=== PATIENT | male | born 1950 | race Caucasian/White ===

== ENCOUNTER 2018-09-17 15:57 | Emergency (ER) | payer MEDICARE, OTHER ==
[~2018-09-17] VITALS: Ht 180.3 cm; Wt 68.2 kg
[2018-09-17 16:54] LABS: BASO # 0.1 10^3/uL (0.0-0.2); BASO % 0.7 % (0.0-1.0); EOS # 0.1 10^3/uL (0.0-0.50); EOS % 0.6 % (0.0-3.0); HEMATOCRIT 43.7 % (42.0-52.0); LYMPH # 1.1 10^3/uL (1.5-4.5); LYMPH % 13.3 % (24.0-44.0); MEAN CORPUSCULAR HEMOGLOBIN 31.6 pg (27.0-33.0); MEAN CORPUSCULAR HGB CONC 34.3 g/dl (32.0-36.5); MONO % 11.9 % (0.0-5.0); NEUTROPHILS # 6.3 10^3/uL (1.8-7.7); PLATELET COUNT, AUTOMATED 298 10^3/uL (150-450); RED BLOOD COUNT 4.75 10^6/uL (4.30-6.10); WHITE BLOOD COUNT 8.6 10^3/uL (4.0-10.0)
[2018-09-17 17:25] LABS: ALBUMIN 3.8 GM/DL (3.2-5.2); ALT/SGPT 24 U/L (12-78); BILIRUBIN,DIRECT 0.2 MG/DL (0.0-0.2); BILIRUBIN,TOTAL 0.4 MG/DL (0.2-1.0); BLOOD UREA NITROGEN 16 MG/DL (7-18); CARBON DIOXIDE LEVEL 30 MEQ/L (21-32); CHLORIDE LEVEL 99 MEQ/L (98-107); CREATININE FOR GFR 0.94 MG/DL (0.70-1.30); GLOMERULAR FILTRATION RATE > 60.0 (>49); GLUCOSE, FASTING 103 MG/DL (70-100); LIPASE 102 U/L (73-393); POTASSIUM SERUM 4.5 MEQ/L (3.5-5.1); SODIUM LEVEL 137 MEQ/L (136-145)
[2018-09-17 17:30] LABS: INR 1.04; PROTHROMBIN TIME 13.3 SECONDS (11.8-14.0)
--- NOTE | 2018-09-17 19:11 | REPVR ---
EXAM: CT Abdomen and Pelvis Without Contrast EXAM DATE/TIME: 09/17/2018 5:10 PM CLINICAL HISTORY: 68 years old, male; Other: Hematuria, no pain; Additional info: Hematuria, no pain, ? baldder CA TECHNIQUE: Imaging protocol: Axial computed tomography images of the abdomen and pelvis without contrast. Coronal and sagittal reformatted images were created and reviewed. Radiation optimization: All CT scans at this facility use at least one of these dose optimization techniques: automated exposure control; mA and/or kV adjustment per patient size (includes targeted exams where dose is matched to clinical indication); or iterative reconstruction. COMPARISON: No relevant prior studies available. FINDINGS: Lungs: Clear lung bases. Liver: Normal-appearing liver. Gallbladder and bile ducts: The gallbladder is fluid-filled. Normal common bile duct. Pancreas: Normal pancreas. Spleen: Normal spleen. Adrenals: Normal adrenal glands. Kidneys and ureters: There is no evidence of calcified stone right kidney. There is no evidence of obstruction of the right or left ureter. Stomach and bowel: There is marked thickening of the bowel wall of the mid and distal sigmoid colon with numerous diverticula. The cecum is in the right pelvis and the appendix appears within the range of normal. Intraperitoneal space: Normal. No free air. No significant fluid collection. Vasculature: There is calcification of the aorta consistent with atherosclerotic change. Bladder: There is a large mass in the anterior right side of the urinary bladder measuring 5.2 CM by 4.1 CM. There is a hazy appearance of the margin of the urinary bladder and pelvic fat which may be lymphangitic infiltration of neoplasm. There is a 8mm lymph node anterior to the urinary bladder in the peripelvic fat. Reproductive: There is moderate enlargement of the prostate. Bones/joints: There is severe narrowing of the L1-L2, L4-L5 and L5-S1 disc space with sclerosis and osteophyte formation. Other findings: There is moderate rotoscoliosis. IMPRESSION: 1. 5.2 CM by 4.1 C. solid lobulated mass anterior right side of the urinary bladder. Hazy margins could be lymphangitic invasion. 8mm lymph node identified near the urinary bladder mass. There is lobulation along the base of the urinary bladder as well which could be additional neoplasm. 2. Moderate enlargement of the prostate. 3. There is prominent thickening of the bowel wall of the sigmoid colon with numerous diverticula. With this type of thickening underlying infiltrative process such as neoplasm should be excluded. Colonoscopy should be considered. Electronically signed by: Jadiel Jones On 09/17/2018 19:11:16 PM
[2018-09-17 19:33] VITALS: BP 190/102
[2018-09-17] MEDS ORDERED: MACR100C43 PO (19:36)
[2018-09-17] MEDS ORDERED: NITROFURANTOIN (MACROBID) 100 MG CAP PO ONE (19:45)
--- NOTE | 2018-09-20 21:30 | ED PDOC ---
Post-Departure Follow-Up cheyenne carrera and naina faxed formal report of ct abd/p for fu Kathryn Kilpatrick MD Sep 20, 2018 21:30
[2018-11-17] MEDS ORDERED: BACT400T PO (13:09)
[2018-11-17] MEDS ORDERED: BIOCTAB PO (13:09)
[2018-12-14] MEDS ORDERED: OLAN10TA2 PO (16:01)
[2018-12-14] MEDS ORDERED: PROC10TA4 PO (16:01)
[2018-12-14] MEDS ORDERED: ONDA8TAB10 PO (16:01)
[2019-01-11] MEDS ORDERED: LAXA15TA PO (13:48)
[2019-01-12] MEDS ORDERED: DULC100C2 PO (10:17)
[2019-02-15] MEDS ORDERED: ELIQ5TAB PO (00:01)
== END 2018-09-17 19:46 | disposition home or self-care (01) ==
LOC: M ED 15:57
DX: N32.9 Bladder disorder, unspecified (principal); N39.0 Urinary tract infection, site not specified; R31.21 Asymptomatic microscopic hematuria; I10 Essential (primary) hypertension; N40.0 Benign prostatic hyperplasia without lower urinary tract symptoms; K63.89 Other specified diseases of intestine; F17.210 Nicotine dependence, cigarettes, uncomplicated

== ENCOUNTER → 2018-09-21 | Outpatient (CLI) | payer MEDICARE, OTHER ==
[~2018-09-21] MED LIST: MACR100C43 PO
== END ==
LOC: M SMT 09:02
PROVIDERS: ATTEND Nurse Practitioner Women's Health
DX: Z12.5 Encounter for screening for malignant neoplasm of prostate (principal)
CPT/HCPCS: 36415; 88108; G0103; G0463

== ENCOUNTER → 2018-10-22 | Outpatient (CLI) | payer MEDICARE, OTHER ==
--- NOTE | 2018-10-22 15:02 | REP ---
Clinical: Preoperative assessment. Bladder tumor. Technique: PA and lateral. Comparison: None. Findings: Chronic emphysematous changes are appreciated. No focal consolidation, effusion, or pneumothorax. Mediastinum and cardiac silhouette are normal. Airway is patent and midline. Skeletal structures are intact. Impression: Chronic emphysematous changes. No acute cardiopulmonary process. Electronically Signed by Gaurang Delgado MD 10/22/2018 02:54 P
[2018-10-22 15:58] LABS: BLOOD UREA NITROGEN 13 MG/DL (7-18); CARBON DIOXIDE LEVEL 32 MEQ/L (21-32); CHLORIDE LEVEL 98 MEQ/L (98-107); CREATININE FOR GFR 0.87 MG/DL (0.70-1.30); GLOMERULAR FILTRATION RATE > 60.0 (>49); GLUCOSE, FASTING 127 MG/DL (70-100); HEMATOCRIT 43.3 % (42.0-52.0); HEMOGLOBIN 14.8 g/dl (13.5-17.5); INR 0.96; MEAN CORPUSCULAR HEMOGLOBIN 31.8 pg (27.0-33.0); MEAN CORPUSCULAR HGB CONC 34.2 g/dl (32.0-36.5); MEAN CORPUSCULAR VOLUME 93.1 fl (80.0-96.0); PLATELET COUNT, AUTOMATED 319 10^3/uL (150-450); POTASSIUM SERUM 5.1 MEQ/L (3.5-5.1); PROTHROMBIN TIME 12.5 SECONDS (11.8-14.0); RED BLOOD COUNT 4.65 10^6/uL (4.30-6.10); SODIUM LEVEL 134 MEQ/L (136-145); WHITE BLOOD COUNT 8.2 10^3/uL (4.0-10.0)
[2018-10-22 15:59] LABS: PARTIAL THROMBOPLASTIN TIME 37.7 SECONDS (25.0-38.4)
== END ==
LOC: M LAB 14:16
PROVIDERS: ATTEND Internal Medicine Gastroenterology
DX: Z01.818 Encounter for other preprocedural examination (principal); D49.4 Neoplasm of unspecified behavior of bladder

== ENCOUNTER 2018-10-28 08:32 | Day surgery (SDC) | payer MEDICARE, OTHER ==
[~2018-10-28] VITALS: Ht 177.8 cm; Wt 61.5 kg
[~2018-10-28 08:32] MED LIST changes: +LR 1,000 ML IV ONE
[2018-10-28] MEDS ORDERED: PROPOFOL 200 MG/20 ML VIAL As Ordered ONE (10:21)
[2018-10-28] MEDS ORDERED: ONDANSETRON 4MG/2ML VIAL (J2405) As Ordered ONE (10:21)
[2018-10-28] MEDS ORDERED: MIDAZOLAM INJ 2 MG/2 ML VIAL (J2250) As Ordered ONE (10:21)
[2018-10-28] MEDS ORDERED: LIDOCAINE 2% INJ 100 MG/5 ML SDV (FOR ANES.) As Ordered ONE (10:21)
[2018-10-28] MEDS ORDERED: fentaNYL 100 MCG/2 ML INJECTION (J3010) As Ordered ONE ×2 (10:21→11:56)
[2018-10-28] MEDS ORDERED: dexameTHASONE 4 MG/ML 1ML VIAL (J1100) As Ordered ONE (10:21)
[2018-10-28] MEDS ORDERED: ROCURONIUM BROMIDE 50 MG/5 ML VIAL As Ordered ONE (10:21)
[2018-10-28] MEDS ORDERED: ALBUTEROL SULFATE 2.5 MG/0.5 ML INH NEB SOLN As Ordered ONE (10:27)
[2018-10-28] MEDS ORDERED: ALBUTEROL SULFATE 2.5 MG/0.5 ML INH NEB SOLN INH ONE (10:45)
[2018-10-28] MEDS ORDERED: METHYLENE BLUE 0.5% (5MG/ML) 10 ML AMP (PROVAYBLUE)(Q9968 PER 1MG) As Ordered ONE (11:18)
[2018-10-28] MEDS ORDERED: ACETAMINOPHEN 1000MG 100ML IV BTL (OFIRMEV) (J0131 PER 10MG) As Ordered ONE (12:00)
[2018-10-28] MEDS ORDERED: SUGAMMADEX SODIUM 500 MG/5 ML VIAL (BRIDION) As Ordered ONE (12:06)
[2018-10-28] MEDS ORDERED: KETOROLAC 60 MG/2 ML VIAL (J1885) As Ordered ONE (12:06)
[2018-10-28] MEDS ORDERED: fentaNYL 100 MCG/2 ML INJECTION (J3010) IV PRN (13:00)
[2018-10-28] MEDS ORDERED: PERCOCET 5MG/325MG TAB PO PRN (13:00)
[2018-10-28] MEDS ORDERED: ONDANSETRON 4MG/2ML VIAL (J2405) IV PRN (13:00)
[2018-10-28] MEDS ORDERED: LR 1,000 ML IV SCH (13:00)
[2018-10-28] MEDS ORDERED: ACETAMINOPHEN TAB 650MG DOSE (2X325MG) PO PRN (13:15)
[2018-10-28 14:22] VITALS: BP 176/82
--- NOTE | 2018-10-29 07:42 | RO ---
DATE OF PROCEDURE: 10/28/2018 PREPROCEDURE DIAGNOSIS: Bladder tumor. POSTPROCEDURE DIAGNOSIS: Bladder tumor, meatal stenosis. OPERATIVE PROCEDURE: Cystoscopy, transurethral resection of bladder tumor (greater than 5 cm), urethral meatal dilation, examination under anesthesia. SURGEON: Monster Duenas MD TACTICAL DEBRIEFER OFFICER: None. ANESTHESIA: General. OPERATIVE INDICATIONS: This is a 68-year-old male who was found to have a very large bladder tumor going up the anterior wall as well as several additional tumors scattered throughout his bladder. He was brought to the operating room today for the above listed procedure. DESCRIPTION OF PROCEDURE: The patient was brought to the operating room and general anesthesia was induced. Prophylactic antibiotics were infused. He was then placed in dorsal lithotomy position and a bimanual digital rectal examination under anesthesia was performed. It was negative for prostate nodules. I could not palpate any bladder masses through the rectum but when palpating in the suprapubic area, it felt as if a large mass could be palpated in his bladder. At this point, the patient was prepped and draped in the usual sterile fashion. I then tried to insert a resectoscope but it would not go as the meatus was too narrow. I therefore dilated his urethral meatus to 30 Latvian using curved metal sounds. I then inserted the resectoscope using the visual obturator and advanced it into the bladder. The bladder was thoroughly examined and of note, the patient had a large approximately 5-6 cm ball shaped mass growing off of the anterior wall. He also had several additional tumors growing throughout his bladder on the posterior wall as well as the bladder base. I could not visualize the ureteral orifices because of this. At this point, I began resecting the tumors,starting on the large one on the anterior wall. I completely resected that tumor. I also resected additional tumors in the bladder. It did not appear possible to completely resect all of his tumors. I therefore did not resect at the base of the bladder, not knowing where the ureteral orifices were. Once done resecting, all the specimen was removed using an Ellik evacuator. I then took two biopsies of the prostatic urethra as well. This was sent separate as biopsy of prostate urethra. Hemostasis was obtained using coagulation current and once satisfied with hemostasis, an 18-Latvian Cueto catheter was inserted into the bladder. The balloon was filled with 10 mL of sterile water and the catheter was connected to gravity drainage and this marked the conclusion of the procedure. The patient was taken out of dorsal lithotomy position, awakened from anesthesia and transported to the recovery room in stable condition. ESTIMATED BLOOD LOSS: 10 mL. COMPLICATIONS: None. SPECIMENS: Bladder tumors, biopsy of the prostatic urethra. PLAN: The patient will followup in the clinic in a week or so for catheter removal and to discuss pathology results. I suspect this patient does have muscle invasive bladder cancer and will likely ultimately need to have a cystectomy done with neoadjuvant chemotherapy. MTDD
== END 2018-10-28 14:37 | disposition home or self-care (01) ==
LOC: M SDC 08:32
PROVIDERS: ATTEND Urology
DX: C67.8 Malignant neoplasm of overlapping sites of bladder (principal); N35.911 Unspecified urethral stricture, male, meatal; F17.210 Nicotine dependence, cigarettes, uncomplicated
CPT/HCPCS: 52240; 88305; 88307; J0131; J0690; J1100; J1885; J2250; J2405; J3010; Q9968

== ENCOUNTER → 2018-11-10 | Outpatient (REF) | payer MEDICARE, OTHER ==
[~2018-11-10] MED LIST changes: -LR 1,000 ML IV ONE
[2018-11-10 19:26] LABS: APPEARANCE, URINE CLOUDY (CLEAR); BACTERIA, URINE AUTO NEGATIVE (NEGATIVE); BILIRUBIN, URINE AUTO NEGATIVE (NEGATIVE); BLOOD, URINE BLOOD 3+ (NEGATIVE); COLOR, URINE YELLOW (YELLOW); GLUCOSE, URINE (UA) AUTO NEGATIVE (NEGATIVE); KETONE, URINE AUTO NEGATIVE (NEGATIVE); LEUKOCYTE ESTERASE, URINE AUTO 3+ (NEGATIVE); MUCUS, URINE SMALL (NEGATIVE); NITRITE, URINE AUTO POSITIVE (NEGATIVE); PROTEIN, URINE AUTO 2+ mg/dL (NEGATIVE); RBC, URINE AUTO TNTC /HPF (0-3); SPECIFIC GRAVITY URINE AUTO 1.014 (1.002-1.035); SQUAMOUS EPITHELIAL CELL UR AU 0 /HPF (0-6); TRANSITIONAL EPITHELIAL AUTO 4 /HPF; UROBILINOGEN, URINE AUTO 0.2 mg/dL (0.0-2.0); WBC, URINE AUTO TNTC /HPF (0-3)
== END ==
LOC: M SMT 18:36
PROVIDERS: ATTEND Nurse Practitioner Women's Health
DX: N50.89 Other specified disorders of the male genital organs (principal)
CPT/HCPCS: 81001; 87088; 87186; G0463

== ENCOUNTER → 2018-11-18 | Outpatient (CLI) | payer MEDICARE, OTHER ==
[~2018-11-18] MED LIST changes: +BACT400T PO; +BIOCTAB PO
--- NOTE | 2018-11-19 07:43 | ECHO ---
TWO-DIMENSIONAL ECHOCARDIOGRAM REPORT DATE: 11/18/2018 REFERRING PHYSICIAN: Dr. Jo Ann Almanzar INDICATION: Chemotherapy. HEIGHT: 177 cm. WEIGHT: 62 kg. DIMENSIONS: IVS 1.0 LV 3.7 LVPW 1.1 LA 2.5 Aorta 3.1 IVC 1.1 Mitral E wave velocity 61 A-wave 60 FINDINGS: The study is of acceptable technical quality. The patient is in sinus rhythm with heart rate around 90 beats per minute. Left ventricle is normal size and systolic function, estimated left ventricular ejection fraction (LVEF) is around 65%. Calculated LVEF was 59% which seems to me unlikely this low. Right ventricle is normal size and systolic function. Both atria appear normal. Aortic mitral and tricuspid valves appear normal. Pulmonic valve was not well seen. No pericardial effusion is noted. Inferior vena cava is normal size. Aortic root is normal. Aortic arch was not well seen. Abdominal aorta appears normal. Doppler interrogation reveals no aortic stenosis or insufficiency. There is trace mitral and tricuspid insufficiency. Calculated pulmonary artery pressure is within normal limits. Mitral inflow pattern is normal. Tissue Doppler imaging was not performed but I assume normal diastolic function. CONCLUSIONS: 1. Study is of good technical quality. 2. Normal LV size with normal LV systolic function and likely normal diastolic function. 3. No significant valvular disease. 4. Normal central venous pressure and probably normal pulmonary artery pressure. COMMENT: SBE prophylaxis is not recommended.
== END ==
LOC: M CARPUL 10:59
PROVIDERS: ATTEND Internal Medicine Medical Oncology
DX: Z01.818 Encounter for other preprocedural examination (principal); C67.9 Malignant neoplasm of bladder, unspecified

== ENCOUNTER → 2018-11-22 | Outpatient (CLI) | payer MEDICARE, OTHER ==
[~2018-11-22] MED LIST changes: +ISOVUE-370 76% 100ML VIAL (Q9967) As Ordered ONE
--- NOTE | 2018-11-22 19:33 | REP ---
CT CHEST WITH IV CONTRAST: TECHNIQUE: Axial contrast enhanced images from the thoracic inlet to the upper abdomen using 100 mL Isovue 370 intravenous contrast material with multiplanar reformations. There are mild scattered emphysematous changes primarily in the upper lobes bilaterally. There is a mild biapical pleural and parenchymal scarring. No suspicious nodular opacity is seen. No acute infiltrate is seen. Heart is not enlarged. There is no pleural or pericardial effusion. No significant mediastinal, hilar, or chest wall lymphadenopathy is seen. There are moderate arthrosclerotic calcifications of the thoracic aorta without aneurysm. There are degenerative changes of the spine. In the visualized portions of the upper abdomen note is made of an oval cystic structure in the pancreas, in the midline anteriorly in the pancreatic body. This measures about 8 x 4 mm. No other abnormalities are seen in the visualized upper abdomen. IMPRESSION: Chronic fibrotic and emphysematous changes in the lungs without evidence of nodule or adenopathy. In the visualized upper abdomen a subcentimeter cystic structure in the midline of the body of the pancreas measures about 8 x 4 mm. This is of doubtful significance. Recommend MRI of the pancreas with and without contrast to further evaluate. Electronically Signed by Cheo Hammonds MD 11/22/2018 11:56 P
== END ==
LOC: M RAD 14:57
PROVIDERS: ATTEND Internal Medicine Medical Oncology
DX: R91.8 Other nonspecific abnormal finding of lung field (principal); C67.9 Malignant neoplasm of bladder, unspecified
CPT/HCPCS: 71260; Q9967

== ENCOUNTER → 2018-12-01 | Outpatient (CLI) | payer MEDICARE, OTHER ==
[~2018-12-01] MED LIST changes: -ISOVUE-370 76% 100ML VIAL (Q9967) As Ordered ONE; +OLAN10TA2 PO; +ONDA8TAB7 PO; +PROC10TA4 PO
--- NOTE | 2018-12-01 19:05 | REP ---
PET/CT: History: Staging bladder cancer, muscle invasive, for neoadjuvant chemotherapy. Comparisons: Comparison CT chest November 22, 2018. Comparison CT abdomen and pelvis September 17, 2018. TECHNIQUE: 47 minutes following the intravenous injection of a 8.05 mCi dose of F-18 FDG, three-dimensional PET scintigraphy is acquired from the skull base to the proximal thighs. Triplanar noncontrast CT scanning is acquired through the same anatomic range for attenuation correction, and image registration with scan parameters optimized to minimize radiation exposure to the patient. PET scintigraphy and CT datasets were fused and displayed on a workstation with multiplanar and projection display capability. PET/CT Findings: Head and neck soft tissues are unremarkable. There is no abnormal hypermetabolic uptake within the thorax. No abnormal parenchymal nodule or mass is seen. In the abdomen and pelvis, there is normal hepatic, splenic, gastrointestinal and genitourinary FDG accumulation. No abnormal hypermetabolic luana uptake is seen in the abdomen or pelvis. Visualization of the patient's primary bladder tumor is problematic by PET scintigraphy due to normal excretion of radiotracer in the urine. No pelvic adenopathy or abnormal pelvic hypermetabolic uptake is appreciated. Impression: Negative PET scintigraphy. No abnormal hypermetabolic uptake seen. Electronically Signed by Jacobo Waddell MD 12/02/2018 06:18 P
== END ==
LOC: M PLARAD 10:27
PROVIDERS: ATTEND Internal Medicine Medical Oncology
DX: C67.9 Malignant neoplasm of bladder, unspecified (principal)
CPT/HCPCS: 78815; A9552

== ENCOUNTER → 2018-12-08 | Outpatient (CLI) | payer MEDICARE, OTHER ==
[~2018-12-08] MED LIST changes: +LIDOCAINE 1% MDV 20ML VIAL As Ordered ONE; +MIDAZOLAM INJ 2 MG/2 ML VIAL (J2250) As Ordered ONE; -OLAN10TA2 PO; -ONDA8TAB7 PO; -PROC10TA4 PO; +ceFAZolin 1GM INJ (J0690 PER 500MG) As Ordered ONE; +diphenhydrAMINE INJ 50MG/ML VIAL (J1200) As Ordered ONE; +fentaNYL 100 MCG/2 ML INJECTION (J3010) As Ordered ONE
--- NOTE | 2018-12-08 12:47 | IRHP ---
[facility] IR Pre-Procedure H & P General Date of Service: Dec 08, 2018 Procedure: Same Day Surgery Interval History and Physical I have seen the patient and reviewed last H & P performed within 30 days. There is no significant interval change. History of Present Illness Chief Complaint The patient is a 68-year-old male admitted with a reason for visit of bladder Ca. PRE-PROCEDURE DIAGNOSIS: bladder ca HEART: normal rate. LUNGS: normal breathing at rest. ASA Classification ASA Classification: II-Mild systemic disease Mallampati Score: I NPO: Yes Problems with prior sedation: No Obstructive Sleep Apnea: No Plan moderate sedation Allergies Coded Allergies: No Known Drug Allergies (Verified Allergy, Unknown, 10/26/18) Home Medications Miscellaneous Medications Multivit-Min/FA/Lycopen/Lutein (Biocel Tablet), 1 TAB PO, (Reported) Discontinued Medications Sulfamethoxazole/Trimethoprim (Bactrim 400-80 mg Tablet), 1 TAB PO BID, (Reported) Discontinued Reason: Pt states not taking VS, I&O, 24H, Fishbone Vital Signs/I&O Vital Signs Date Time Temp Pulse Resp B/P (MAP) Pulse Ox O2 Delivery O2 Flow Rate FiO2 12/08/18 11:56 97.8 101 16 97 Room Air SHELLIE RASHEED MD Dec 08, 2018 12:47
--- NOTE | 2018-12-08 14:38 | POST-OPPD ---
Postoperative Procedure Note Date Of Procedure: Dec 08, 2018 Time Of Procedure: 14:37 PREOPERATIVE DIAGNOSIS: bladder ca POSTOPERATIVE DIAGNOSIS: bladder ca FINDINGS: patent right IJ PROCEDURE: right ij port SURGEON: dell ANESTHESIA: mod sed ESTIMATED BLOOD LOSS: < 5 ml COMPLICATIONS:none POSTOPERATIVE CONDITION: stable SHELLIE RASHEED MD Dec 08, 2018 14:38
--- NOTE | 2018-12-08 15:55 | REP ---
IR Ultrasound and fluoroscopy-guided port placement. IR Ultrasound of the neck. IR Moderate sedation. Clinical information: Bladder cancer. Physician: Dr. De La Rosa. Procedure: The patient was advised of the benefits, risks, and alternatives of the procedure and informed consent was obtained. A time-out was performed with verification of the patient's name, MRN, site of procedure and type of procedure to be performed. The patient was positioned in the supine position on the angiographic table. The site was prepped and draped in the usual sterile fashion. Moderate sedation was performed by the physician including the presence of an independent trained observer who assisted and monitored the patient's level of consciousness and physiologic status. Following the administration of fentanyl and Versed , the physician spent 45 minutes of continuous face to face time with the patient. Ultrasound of the neck reveals a patent and compressible right internal jugular vein. A textiles and clothing teacher radiograph reveals no gross abnormality. The neck and anterior chest wall were anesthetized with lidocaine. The right internal jugular vein was accessed using a microintroducer needle under ultrasound guidance, via a lateral approach. An 018 wire was advanced into the superior vena cava, the needle was removed and a microsheath was placed. An Amplatz wire was then passed into the inferior vena cava. An incision at the internal jugular vein access site and anterior chest wall were made using a scalpel. An incision was made at the anterior chest wall. A small pocket was created using a combination of blunt and sharp dissection. A tunneling device was then used to pass the catheter from the pocket to the neck puncture site. An 8-Mauritian Angio dynamics Smart power port was then positioned in the pocket. The catheter was then measured and cut. The introducer sheath was exchanged for a peel-away sheath. The catheter was passed through the peel-away sheath into the internal jugular vein and the peel-away sheath was removed. The port tip was positioned at the cavoatrial junction. The port was then accessed with a Sawant needle. The port flushes and aspirates well. The puncture site in the neck was closed. The chest wall incision was then closed with 2-0 Vicryl and 4-0 Monocryl. Glue and Steri-Strips were applied. A sterile dressing was then applied. The patient tolerated the procedure well and was returned to the PRU in stable condition. Estimated blood loss: <5 ml. Complications: None. Conclusion: 1. Successful placement of an 8-Mauritian Angio dynamics Smart power port via the right internal jugular vein. The port is ready for immediate use. 2. Patient to follow up in IR clinic in 2 weeks. Thank you for this referral. Electronically Signed by Maria Fernanda De La Rosa MD 12/08/2018 03:54 P
[2018-12-08 16:15] VITALS: BP 142/76
== END ==
LOC: M IRPRO 11:24
PROVIDERS: ATTEND Radiology Diagnostic Radiology
DX: C67.9 Malignant neoplasm of bladder, unspecified (principal)
CPT/HCPCS: 36561; 76937; 99152; 99153; C1769; C1788; C1894; J0690; J1200; J2250; J3010

== ENCOUNTER → 2019-02-14 | Outpatient (CLI) | payer MEDICARE, OTHER ==
[~2019-02-14] MED LIST changes: +DULC100C2 PO; +ELIQ5TAB PO; +GASTROGRAFIN SOLUTION 30ML (Q9963) As Ordered ONE; +LAXA15TA PO; -LIDOCAINE 1% MDV 20ML VIAL As Ordered ONE; -MIDAZOLAM INJ 2 MG/2 ML VIAL (J2250) As Ordered ONE; +OLAN10TA2 PO; +ONDA8TAB10 PO; +PROC10TA4 PO; -ceFAZolin 1GM INJ (J0690 PER 500MG) As Ordered ONE; -diphenhydrAMINE INJ 50MG/ML VIAL (J1200) As Ordered ONE; -fentaNYL 100 MCG/2 ML INJECTION (J3010) As Ordered ONE
--- NOTE | 2019-02-14 18:08 | REP ---
Clinical: Bladder cancer. Restaging. Technique: Axial contrast enhanced images from the lung bases to the pubic symphysis with coronal and sagittal re-formations using oral (per protocol) and 100 ml Isovue 370 intravenous contrast material. Comparison: 09/17/2018. Findings: Liver, spleen, pancreas, gallbladder, bilateral adrenal glands and kidneys are normal. The enteric system is without obstruction. There is significant mucosal thickening to the mid/distal sigmoid colon along with diffuse diverticulosis raising the possibility of acute infectious/inflammatory process versus chronic changes. No free air. No ascites or drainable collection. Normal terminal ileum, cecum and appendix identified in the right lower quadrant. The patient is noted to be status post chemotherapy for bladder cancer. There is irregular bladder wall thickening and enhancement primarily along the anterior, right lateral and posterior aspects of the bladder. The right anterolateral bladder mass as identified on prior examination appears to be slightly decreased in size although active neoplasm cannot be excluded. The prostate gland is heterogeneous and mildly prominent. No ascites. No obvious adenopathy although retroperitoneal lymph nodes are identified measuring up to approximately 8 - 9 mm. Atherosclerotic changes to the aorta and vasculature noted without aneurysm or dissection. Osseous structures demonstrate degenerative changes without focal abnormality. Impression: 1. Continued irregular changes to the bladder wall with irregular areas of bladder wall thickening, enhancement and mild adjacent stranding. The right lateral bladder wall mass may be slightly decreased in size from prior examination although active neoplasm cannot be excluded. 2. Significant mucosal thickening to the sigmoid colon along with diverticulosis. Infectious/inflammatory process versus chronic change cannot be distinguished. 3. No ascites. No significant adenopathy. Electronically Signed by Gaurang Delgado MD 02/14/2019 06:00 P
--- NOTE | 2019-02-14 18:43 | REP ---
Clinical: History of bladder cancer for restaging. Technique: Axial contrast enhanced images from the thoracic inlet to the upper abdomen with coronal and sagittal re-formations using 100 ml Isovue 370 intravenous contrast material. Comparison: 11/22/2018. Findings: Lung weiss demonstrate emphysematous changes along with normal scattered chronic interstitial changes and scarring along with mild bronchiectasis. No consolidation. No significant nodule or mass lesion. No pleural effusion. No pneumothorax. There is pulmonary embolus at the origin of the left lower lobe pulmonary artery (images 58 - 70). Atherosclerotic changes to the thoracic aorta and coronary arteries noted without aortic aneurysm, dissection, or cardiomegaly. No pericardial effusion. No obvious axillary, hilar, or mediastinal adenopathy is appreciated. Surrounding musculoskeletal structures without focal osseous abnormality. Impression: 1. Left lower lobe pulmonary embolus. 2. Chronic nonacute findings as described above. No evidence for metastatic disease or acute pulmonary parenchymal process. Electronically Signed by Gaurang Delgado MD 02/14/2019 06:34 P
== END ==
LOC: M RAD 15:24
PROVIDERS: ATTEND Urology
DX: C67.3 Malignant neoplasm of anterior wall of bladder (principal); I26.93 Single subsegmental thrombotic pulmonary embolism without acute cor pulmonale; K57.31 Diverticulosis of large intestine without perforation or abscess with bleeding
CPT/HCPCS: 71260; 74177; 99283; J1642; Q9963

== ENCOUNTER → 2019-04-06 | Outpatient (CLI) | payer MEDICARE, OTHER ==
[~2019-04-06] MED LIST changes: -GASTROGRAFIN SOLUTION 30ML (Q9963) As Ordered ONE
[2019-04-06 19:03] LABS: FREE T4 1.11 NG/DL (0.76-1.46); THYROID STIMULATING HORMONE 2.33 uIU/ML (0.358-3.740)
[2019-04-06 19:05] LABS: CORTISOL BASELINE 27.8 UG/DL (4.3-22.4)
== END ==
LOC: M PLALAB 13:31
PROVIDERS: ATTEND Student in an Organized Health Care Education/Training Program
DX: A04.72 Enterocolitis due to Clostridium difficile, not specified as recurrent (principal); R53.82 Chronic fatigue, unspecified; R63.4 Abnormal weight loss
CPT/HCPCS: 36415; 82533; 84439; 84443; G0463

== ENCOUNTER → 2019-04-06 | Outpatient (REF) | payer MEDICARE, OTHER | LOC: M SFHCPLAZ 11:49 | PROVIDERS: ATTEND Family Medicine | DX: A04.72 Enterocolitis due to Clostridium difficile, not specified as recurrent (principal); R53.82 Chronic fatigue, unspecified; R63.4 Abnormal weight loss; Z53.8 Procedure and treatment not carried out for other reasons ==

== ENCOUNTER → 2019-05-03 | Outpatient (CLI) | payer MEDICARE, OTHER ==
[2019-05-03 12:16] LABS: HEMATOCRIT 31.4 % (42.0-52.0); HEMOGLOBIN 9.8 g/dl (13.5-17.5); MEAN CORPUSCULAR HEMOGLOBIN 28.8 pg (27.0-33.0); MEAN CORPUSCULAR HGB CONC 31.2 g/dl (32.0-36.5); MEAN CORPUSCULAR VOLUME 92.4 fl (80.0-96.0); PLATELET COUNT, AUTOMATED 589 10^3/uL (150-450); WHITE BLOOD COUNT 7.1 10^3/uL (4.0-10.0)
[2019-05-03 12:47] LABS: BLOOD UREA NITROGEN 29 MG/DL (7-18); CALCIUM LEVEL 9.3 MG/DL (8.8-10.2); CARBON DIOXIDE LEVEL 26 MEQ/L (21-32); CHLORIDE LEVEL 109 MEQ/L (98-107); CREATININE FOR GFR 1.06 MG/DL (0.70-1.30); GLOMERULAR FILTRATION RATE > 60.0 (>49); GLUCOSE, FASTING 85 MG/DL (70-100); POTASSIUM SERUM 4.8 MEQ/L (3.5-5.1); SODIUM LEVEL 139 MEQ/L (136-145)
== END ==
LOC: M LAB 11:35
PROVIDERS: ATTEND Urology
DX: C67.9 Malignant neoplasm of bladder, unspecified (principal)

== ENCOUNTER → 2019-05-05 | Outpatient (CLI) | payer MEDICARE, OTHER ==
[~2019-05-05] MED LIST changes: +ISOVUE-370 76% 100ML VIAL (Q9967) As Ordered ONE
--- NOTE | 2019-05-05 14:59 | REP ---
CT UROGRAPHY: CT ABDOMEN AND PELVIS WITHOUT AND DUAL-PHASE WITH CONTRAST STUDY. HISTORY: Malignant neoplasm of the urinary bladder. CT CONTRAST DOSE: 100 mL of intravenous Isovue 370. Comparison CT study February 14, 2019. CT FINDINGS: In the interval since the prior study, the patient has undergone cystectomy and prostatectomy and urinary diversion enterostomy. Preliminary digital control systems eng radiograph shows an unremarkable bowel gas pattern. There is an Toznsh-I-Trji catheter in place in the chest on the right. The lung bases are clear although emphysematous. No focal hepatic lesion is observed. No abnormality is noted in the gallbladder. Spleen is unremarkable. There are two tiny cystic areas in the pancreas, one in the body and the other in the tail unchanged from the prior study. No adrenal lesion is seen. The kidneys show no evidence of hydronephrosis or mass lesion. No retroperitoneal mass or adenopathy is observed. A normal appendix is seen retrocecal in position. Pelvic CT images demonstrate diverticulosis in the sigmoid and rectosigmoid colon with moderate mural thickening in the sigmoid colon loop question diverticulitis. There is minimal peritoneal fluid adjacent to this loop. There is no evidence of free air or akil abscess formation. Urinary bladder and prostate have been removed. There are several inguinal lymph nodes noted bilaterally. These are very slightly more prominent in size than on the February 14, 2019 study. They have preserved hilar architecture and this may be reactive change. No pelvic mass or intrapelvic adenopathy is observed. IMPRESSION: Status post interval cystectomy and prostatectomy and urinary diversion enterostomy. There is a small quantity of ascitic fluid in the pelvic reflections adjacent to an abnormal loop of rectosigmoid colon which shows mural thickening and diverticulosis, question diverticulitis. No abscess or free air is seen. If the patient has been treated with pelvic radiation, radiation induced enteropathy would be a possibility as well. Unreviewed
== END ==
LOC: M RAD 12:59
PROVIDERS: ATTEND Urology
DX: C67.9 Malignant neoplasm of bladder, unspecified (principal)
CPT/HCPCS: 74178; J1642; Q9967

== ENCOUNTER → 2019-05-13 | Outpatient (REF) | payer MEDICARE, OTHER ==
[~2019-05-13] MED LIST changes: -ISOVUE-370 76% 100ML VIAL (Q9967) As Ordered ONE
== END ==
LOC: M SFHCPLAZ 13:29
PROVIDERS: ATTEND Student in an Organized Health Care Education/Training Program
DX: R19.7 Diarrhea, unspecified (principal)

== ENCOUNTER 2019-05-30 15:28 | Outpatient (CLI) | payer MEDICARE, OTHER ==
[~2019-05-30] VITALS: Ht 177.8 cm; Wt 60.9 kg
[2019-05-30 15:30] VITALS: BP 144/65
[2019-05-30] MEDS ORDERED: BEZLOTOXUMAB 600 MG in NS 100 ML IV ONE (16:00)
[2019-05-30] MEDS ORDERED: SODIUM CHLORIDE 0.9% INJ 10 ML SYR IV ONE (17:00)
[2019-05-30] MEDS ORDERED: SODIUM CHLORIDE 0.9% INJ 10 ML SYR IV PRN (17:00)
[2019-05-30 17:25] VITALS: BP 130/66
== END 2019-05-30 17:25 | disposition home or self-care (01) ==
LOC: M INFU 15:28
PROVIDERS: ATTEND Internal Medicine Infectious Disease
DX: A04.71 Enterocolitis due to Clostridium difficile, recurrent (principal)
CPT/HCPCS: 96365; J0565; J1642

== ENCOUNTER → 2019-09-06 | Outpatient (CLI) | payer MEDICARE, OTHER ==
--- NOTE | 2019-09-06 14:36 | REP ---
Clinical: Neoplasm. Technique: PA and lateral. Comparison: 10/22/2018. Findings: Mediastinum and cardiac silhouette are within normal limits and stable. [id number] identified with tip in the SVC/right atrium. Lung weiss demonstrate chronic changes. No focal consolidation, effusion, or pneumothorax. Skeletal structures are intact. Impression: No focal consolidation or effusion. Electronically Signed by Gaurang Delgado MD 09/06/2019 02:27 P
[2019-09-06 15:34] LABS: BLOOD UREA NITROGEN 23 MG/DL (7-18); CALCIUM LEVEL 9.1 MG/DL (8.8-10.2); CARBON DIOXIDE LEVEL 26 MEQ/L (21-32); CHLORIDE LEVEL 108 MEQ/L (98-107); CREATININE FOR GFR 1.23 MG/DL (0.70-1.30); GLOMERULAR FILTRATION RATE > 60.0 (>49); GLUCOSE, FASTING 89 MG/DL (70-100); POTASSIUM SERUM 4.6 MEQ/L (3.5-5.1); SODIUM LEVEL 139 MEQ/L (136-145)
== END ==
LOC: M LAB 14:04
PROVIDERS: ATTEND Urology
DX: C67.9 Malignant neoplasm of bladder, unspecified (principal)

== ENCOUNTER → 2019-10-05 | Outpatient (CLI) | payer MEDICARE, OTHER ==
[~2019-10-05] MED LIST changes: +GASTROGRAFIN SOLUTION 30ML (Q9963) As Ordered ONE; +ISOVUE-370 76% 100ML VIAL As Ordered ONE
--- NOTE | 2019-11-08 10:35 | REP ---
CT ABDOMEN AND PELVIS WITH IV AND ORAL CONTRAST HISTORY: Bladder cancer. Post neoadjuvant chemo. COMPARISON: CT study 05/05/2019. CT CONTRAST DOSE: 100 mL of intravenous Isovue-[address] FINDINGS: Preliminary digital windmill mechanic radiograph shows an enterostomy device projecting in the right upper quadrant. Bowel gas pattern is unremarkable. There is minimal diffuse infiltration of the liver. No focal liver lesion is seen. Homogeneous normal size spleen is seen. No abnormality is noted in the pancreas. There is a tiny density in the dependent portion of the gallbladder and I cannot exclude a tiny gallstone. Kidneys enhance symmetrically and are morphologically intact. No hydronephrosis is seen. No celiac or upper abdominal lymphadenopathy is appreciated. Urinary bladder is surgically absent. There is left colonic diverticulosis and there is some mural thickening in the sigmoid colon, which may reflect diverticulitis. This is unchanged, however, from the prior study of 05/05/2019. No pelvic mass or adenopathy is seen within the pelvis. There are some slightly prominent left inguinal lymph nodes again noted unchanged. The largest of these measures 1.9 x 1.3 x 1.3 cm. No bony destructive lesion is seen. IMPRESSION: Stable findings from 05/05/2019. Status post cystectomy and urinary diversion. Slightly prominent left inguinal lymph nodes unchanged from the most recent prior study. MTDD
--- NOTE | 2019-11-08 10:36 | REP ---
CT CHEST WITH IV CONTRAST HISTORY: Bladder cancer. Post-treatment. CT CONTRAST DOSE: 100 mL of intravenous Isovue-370. COMPARISON: Chest CT study 02/14/2019. CT FINDINGS: There is no CT evidence of pulmonary embolism today. However, there is absence of contrast enhancement in the internal jugular vein above the right-sided Infusaport and I suspect chronic thrombosis. The brachiocephalic vein and superior vena cava appear patent. No mediastinal mass or adenopathy is observed. No pleural or pericardial effusion is seen. There is multifactorial vascular calcification again noted. No new infiltrate is seen in the lung weiss. Emphysematous changes are again noted. There is a linear density in the left lower lobe on todays CT study adjacent to the major fissure suggesting subsegmental discoid atelectasis. There is some fibrosis extending caudally from this in the left lower lobe. No bony destructive lesion is appreciated. IMPRESSION: No evidence of intrathoracic mass or adenopathy. MTDD
== END ==
LOC: M RAD 11:08
PROVIDERS: ATTEND Urology
DX: C67.3 Malignant neoplasm of anterior wall of bladder (principal)
CPT/HCPCS: 71260; 74177; J1642; Q9963; Q9967

== ENCOUNTER → 2020-07-24 | Outpatient (REF) | payer MEDICARE, OTHER ==
[~2020-07-24] MED LIST changes: -GASTROGRAFIN SOLUTION 30ML (Q9963) As Ordered ONE; -ISOVUE-370 76% 100ML VIAL As Ordered ONE
== END ==
LOC: M SFHCPLAZ 10:26
PROVIDERS: ATTEND Family Medicine
DX: E78.00 Pure hypercholesterolemia, unspecified (principal)

== ENCOUNTER → 2020-07-27 | Outpatient (REF) | payer MEDICARE, OTHER ==
[2020-07-27 13:50] LABS: BASO # 0.1 10^3/uL (0.0-0.2); EOS # 0.2 10^3/uL (0.0-0.5); EOS % 2.2 % (0.0-3.0); HEMATOCRIT 41.3 % (42.0-52.0); HEMOGLOBIN 13.9 g/dl (13.5-17.5); LYMPH # 1.5 10^3/uL (1.5-5.0); LYMPH % 20.3 % (24.0-44.0); MEAN CORPUSCULAR HGB CONC 33.7 g/dl (32.0-36.5); MEAN CORPUSCULAR VOLUME 94.9 fl (80.0-96.0); MONO % 14.3 % (2.0-8.0); NEUTROPHILS # 4.5 10^3/uL (1.5-8.5); NEUTROPHILS % 61.5 % (36.0-66.0); PLATELET COUNT, AUTOMATED 237 10^3/uL (150-450); RED BLOOD COUNT 4.35 10^6/uL (4.30-6.10); WHITE BLOOD COUNT 7.3 10^3/uL (4.0-10.0)
[2020-07-27 15:00] LABS: ALBUMIN 3.8 GM/DL (3.2-5.2); ALT/SGPT 27 U/L (12-78); BILIRUBIN,TOTAL 0.4 MG/DL (0.2-1.0); BLOOD UREA NITROGEN 17 MG/DL (7-18); CALCIUM LEVEL 9.6 MG/DL (8.8-10.2); CARBON DIOXIDE LEVEL 26 MEQ/L (21-32); CHLORIDE LEVEL 99 MEQ/L (98-107); CHOLESTEROL LEVEL 145 MG/DL (<200); CHOLESTEROL RISK RATIO 1.629 (<5); CREATININE FOR GFR 1.03 MG/DL (0.70-1.30); GLOMERULAR FILTRATION RATE > 60.0 (>42); GLUCOSE, FASTING 97 MG/DL (70-100); HDL CHOLESTEROL 89 MG/DL (>40); LDL CHOLESTEROL 37 MG/DL (<100); NON-HDL-C 56 MG/DL; POTASSIUM SERUM 4.4 MEQ/L (3.5-5.1); SODIUM LEVEL 132 MEQ/L (136-145); TOTAL PROTEIN 7.8 GM/DL (6.4-8.2); TRIGLYCERIDES LEVEL 97 MG/DL (<150)
== END ==
LOC: M SFHCPLAZ 10:48
PROVIDERS: ATTEND Family Medicine
DX: Z00.00 Encounter for general adult medical examination without abnormal findings (principal); E78.00 Pure hypercholesterolemia, unspecified

== ENCOUNTER → 2021-07-29 | Outpatient (CLI) | payer MEDICARE, OTHER ==
[~2021-07-29] MED LIST changes: -OLAN10TA2 PO; +OLAN1TAB20 PO; +ONDA-84 PO; -ONDA8TAB10 PO; -PROC10TA4 PO; +PROC10TA5 PO
[2021-07-29 13:35] LABS: BASO # 0.1 10^3/uL (0.0-0.2); BASO % 0.6 % (0.0-1.0); EOS # 0.2 10^3/uL (0.0-0.5); EOS % 1.4 % (0.0-3.0); HEMATOCRIT 43.3 % (42.0-52.0); HEMOGLOBIN 14.5 g/dl (13.5-17.5); LYMPH # 1.3 10^3/uL (1.5-5.0); LYMPH % 11.2 % (24.0-44.0); MEAN CORPUSCULAR HEMOGLOBIN 31.7 pg (27.0-33.0); MEAN CORPUSCULAR HGB CONC 33.5 g/dl (32.0-36.5); MEAN CORPUSCULAR VOLUME 94.5 fl (80.0-96.0); MONO # 1.2 10^3/uL (0.0-0.8); MONO % 10.3 % (2.0-8.0); NEUTROPHILS # 8.5 10^3/uL (1.5-8.5); NEUTROPHILS % 76.1 % (36.0-66.0); PLATELET COUNT, AUTOMATED 227 10^3/uL (150-450); RED BLOOD COUNT 4.58 10^6/uL (4.30-6.10); WHITE BLOOD COUNT 11.2 10^3/uL (4.0-10.0)
[2021-07-29 14:49] LABS: ALBUMIN 3.9 GM/DL (3.2-5.2); ALT/SGPT 26 U/L (12-78); BILIRUBIN,TOTAL 0.4 MG/DL (0.2-1.0); BLOOD UREA NITROGEN 16 MG/DL (7-18); CALCIUM LEVEL 9.3 MG/DL (8.8-10.2); CARBON DIOXIDE LEVEL 30 MEQ/L (21-32); CHLORIDE LEVEL 98 MEQ/L (98-107); CHOLESTEROL LEVEL 142 MG/DL (<200); CHOLESTEROL RISK RATIO 1.479 (<5); CREATININE FOR GFR 1.16 MG/DL (0.70-1.30); GLOMERULAR FILTRATION RATE > 60.0 (>42); GLUCOSE, FASTING 99 MG/DL (70-100); HDL CHOLESTEROL 96 MG/DL (>40); LDL CHOLESTEROL 33 MG/DL (<100); NON-HDL-C 46 MG/DL; POTASSIUM SERUM 4.9 MEQ/L (3.5-5.1); SODIUM LEVEL 132 MEQ/L (136-145); TOTAL PROTEIN 7.9 GM/DL (6.4-8.2); TRIGLYCERIDES LEVEL 67 MG/DL (<150)
== END ==
LOC: M PLALAB 10:35
PROVIDERS: ATTEND Student in an Organized Health Care Education/Training Program
DX: Z00.00 Encounter for general adult medical examination without abnormal findings (principal); Z79.899 Other long term (current) drug therapy

== ENCOUNTER → 2021-09-10 | Outpatient (CLI) | payer MEDICARE, OTHER | LOC: M RAD 10:08 | PROVIDERS: ATTEND Student in an Organized Health Care Education/Training Program | DX: Z13.6 Encounter for screening for cardiovascular disorders (principal) ==

== ENCOUNTER 2022-03-13 07:55 | Emergency (ER) | payer MEDICARE, OTHER ==
[~2022-03-13] VITALS: Ht 177.8 cm; Wt 64.4 kg
[2022-03-13] MEDS ORDERED: ASPI81TA26 PO (08:02)
[2022-03-13] MEDS ORDERED: SALI0.6530 NARES (09:10)
[2022-03-13] MEDS ORDERED: AFRISPR3 (09:10)
[2022-03-13 09:23] VITALS: BP 142/79
== END 2022-03-13 09:24 | disposition home or self-care (01) ==
LOC: M ED 07:55
DX: R04.0 Epistaxis (principal); F17.200 Nicotine dependence, unspecified, uncomplicated; Z79.82 Long term (current) use of aspirin; Z79.51 Long term (current) use of inhaled steroids; Z79.899 Other long term (current) drug therapy

== ENCOUNTER → 2022-05-01 | Outpatient (CLI) | payer MEDICARE, OTHER ==
[~2022-05-01] MED LIST changes: +AFRISPR3; +ASPI81TA26 PO; +SALI0.6530 NARES
[2022-05-01 14:43] LABS: CREATININE,RANDOM URINE 75.5 MG/DL
[2022-05-01 15:01] LABS: BLOOD UREA NITROGEN 17 MG/DL (9-23); CALCIUM LEVEL 9.7 MG/DL (8.3-10.6); CARBON DIOXIDE LEVEL 30 MMOL/L (20-31); CHLORIDE LEVEL 98 MMOL/L (98-107); CREATININE FOR GFR 1.18 MG/DL (0.70-1.30); GLOMERULAR FILTRATION RATE > 60.0 (>42); GLUCOSE, FASTING 169 MG/DL (74-106); POTASSIUM SERUM 4.8 MMOL/L (3.5-5.1); SODIUM LEVEL 133 MMOL/L (136-145)
[2022-05-01 15:56] LABS: OSMOLALITY SERUM 289 MOSM/KG (280-301)
== END ==
LOC: M RAD 13:19
PROVIDERS: ATTEND Student in an Organized Health Care Education/Training Program
DX: Z87.891 Personal history of nicotine dependence (principal)

== ENCOUNTER → 2022-07-23 | Outpatient (CLI) | payer MEDICARE, OTHER ==
[~2022-07-23] MED LIST changes: +ALBU6.7H6 INH; +ALBU8.5H INH; +AMLO1TAB24 PO; +ATOR80TA59 PO; +AZIT500T5 PO; +CENT1TAB PO; +METO1TAB32 PO; +MIRA3350 PO; +PRED20TA PO; +PRED50TA PO; +SENN-85 PO; +SYMB16INH INH
[2022-07-23 14:54] LABS: ALBUMIN 4.1 G/DL (3.2-5.2); ALKALINE PHOSPHATASE 103 U/L (46-116); ALT/SGPT 31 U/L (7.0-40); AST/SGOT 34 U/L (<34); BILIRUBIN,TOTAL 0.7 MG/DL (0.3-1.2); BLOOD UREA NITROGEN 18 MG/DL (9-23); CALCIUM LEVEL 9.6 MG/DL (8.3-10.6); CARBON DIOXIDE LEVEL 28 MMOL/L (20-31); CHLORIDE LEVEL 98 MMOL/L (98-107); CHOLESTEROL LEVEL 155 MG/DL (<200); CHOLESTEROL RISK RATIO 1.57 (<5); CREATININE FOR GFR 1.12 MG/DL (0.70-1.30); GLOMERULAR FILTRATION RATE > 60.0 (>42); GLUCOSE, FASTING 81 MG/DL (74-106); HDL CHOLESTEROL 98.6 MG/DL (>40); LDL CHOLESTEROL 42.8 MG/DL (<100); NON-HDL-C 56.4 MG/DL; POTASSIUM SERUM 5.2 MMOL/L (3.5-5.1); SODIUM LEVEL 132 MMOL/L (136-145); TOTAL PROTEIN 7.6 G/DL (5.7-8.2); TRIGLYCERIDES LEVEL 68 MG/DL (<150)
[2022-07-23 15:01] LABS: HEMOGLOBIN A1c 5.1 % (4.0-6.0)
== END ==
LOC: M PLALAB 10:42
PROVIDERS: ATTEND Student in an Organized Health Care Education/Training Program
DX: Z13.220 Encounter for screening for lipoid disorders (principal); Z13.1 Encounter for screening for diabetes mellitus; Z79.899 Other long term (current) drug therapy

== ENCOUNTER 2022-07-25 16:14 | Observation (INO) | payer MEDICARE, OTHER ==
[~2022-07-25] VITALS: Ht 180.3 cm; Wt 59.3 kg
[~2022-07-25 16:14] MED LIST changes: -ALBU6.7H6 INH; -ALBU8.5H INH; -AMLO1TAB24 PO; -ATOR80TA59 PO; -AZIT500T5 PO; -CENT1TAB PO; -METO1TAB32 PO; -MIRA3350 PO; -PRED20TA PO; -PRED50TA PO; -SENN-85 PO; -SYMB16INH INH
[2022-07-25] MEDS ORDERED: OXYMETAZOLINE 0.05% NASAL SPRAY (AFRIN) ONE (16:50)
[2022-07-25 17:42] LABS: BASO # 0.1 10^3/uL (0.0-0.2); BASO % 0.5 % (0.0-1.0); EOS % 0.3 % (0.0-3.0); HEMATOCRIT 39.1 % (42.0-52.0); HEMOGLOBIN 13.2 g/dl (13.5-17.5); LYMPH # 0.8 10^3/uL (1.5-5.0); LYMPH % 7.6 % (24.0-44.0); MEAN CORPUSCULAR HEMOGLOBIN 30.9 pg (27.0-33.0); MEAN CORPUSCULAR HGB CONC 33.8 g/dl (32.0-36.5); MEAN CORPUSCULAR VOLUME 91.6 fl (80.0-96.0); MONO # 0.9 10^3/uL (0.0-0.8); MONO % 8.3 % (2.0-8.0); NEUTROPHILS # 8.7 10^3/uL (1.5-8.5); NEUTROPHILS % 82.7 % (36.0-66.0); PLATELET COUNT, AUTOMATED 283 10^3/uL (150-450); RED BLOOD COUNT 4.27 10^6/uL (4.30-6.10); WHITE BLOOD COUNT 10.5 10^3/uL (4.0-10.0)
[2022-07-25 18:03] LABS: BLOOD UREA NITROGEN 36 MG/DL (9-23); CALCIUM LEVEL 9.8 MG/DL (8.3-10.6); CARBON DIOXIDE LEVEL 24 MMOL/L (20-31); CHLORIDE LEVEL 98 MMOL/L (98-107); CREATININE FOR GFR 1.17 MG/DL (0.70-1.30); GLOMERULAR FILTRATION RATE > 60.0 (>42); GLUCOSE, FASTING 127 MG/DL (74-106); SODIUM LEVEL 131 MMOL/L (136-145)
[2022-07-25] MEDS ORDERED: ATOR80TA59 PO (20:02)
[2022-07-25] MEDS ORDERED: CENT1TAB PO (20:02)
[2022-07-25] MEDS ORDERED: HOME MED LIST COMPLETE! XX SCH (20:05)
[2022-07-25 20:22] LABS: INR 0.91; PROTHROMBIN TIME 12.4 SECONDS (12.5-14.5)
[2022-07-25 20:23] LABS: PARTIAL THROMBOPLASTIN TIME 35.7 SECONDS (24.8-34.2)
[2022-07-25] MEDS ORDERED: hydrALAZINE 20MG/ML 1ML VIAL IV STA (20:37)
[2022-07-25] MEDS ORDERED: KETOROLAC 30 MG/ML 1ML VIAL IV PRN (20:40)
[2022-07-25] MEDS ORDERED: ACETAMINOPHEN TAB 650MG DOSE (2X325MG) PO PRN (20:40)
[2022-07-25] MEDS ORDERED: MORPHINE 2 MG/ML 1ML VIAL IV PRN (20:40)
[2022-07-25 20:41] LABS: RSV AMPLIFICATION NEGATIVE (NEGATIVE)
[2022-07-25] MEDS ORDERED: IPRATROPIUM 0.5MG/ALBUTEROL 2.5MG INH SOL UD 3ML (DUONEB) NEB PRN (21:15)
[2022-07-25 22:15] VITALS: BP 136/76; TEMP 96.5; O2SAT 95
[2022-07-25] MEDS: AUGMENTIN 875 MG TAB PO SCH (22:53)
[2022-07-25 23:13] VITALS: BP 168/74; TEMP 97.2; O2SAT 97
[2022-07-25] MEDS ORDERED: amLODIPine 5 MG TAB PO ONE (23:45)
[2022-07-26] MEDS ORDERED: IPRATROPIUM 0.5MG/ALBUTEROL 2.5MG INH SOL UD 3ML (DUONEB) NEB SCH
[2022-07-26 02:06] VITALS: BP 134/70
[2022-07-26 03:56] VITALS: BP 156/84; TEMP 97.9; O2SAT 97
[2022-07-26 05:34] LABS: HEMATOCRIT 35.1 % (42.0-52.0); HEMOGLOBIN 12.1 g/dl (13.5-17.5); MEAN CORPUSCULAR HEMOGLOBIN 30.9 pg (27.0-33.0); MEAN CORPUSCULAR HGB CONC 34.5 g/dl (32.0-36.5); MEAN CORPUSCULAR VOLUME 89.5 fl (80.0-96.0); PLATELET COUNT, AUTOMATED 248 10^3/uL (150-450); RED BLOOD COUNT 3.92 10^6/uL (4.30-6.10); WHITE BLOOD COUNT 8.4 10^3/uL (4.0-10.0)
[2022-07-26 05:53] LABS: BLOOD UREA NITROGEN 39 MG/DL (9-23); CALCIUM LEVEL 8.8 MG/DL (8.3-10.6); CARBON DIOXIDE LEVEL 24 MMOL/L (20-31); CHLORIDE LEVEL 101 MMOL/L (98-107); CREATININE FOR GFR 1.17 MG/DL (0.70-1.30); GLOMERULAR FILTRATION RATE > 60.0 (>42); GLUCOSE, FASTING 97 MG/DL (74-106); MAGNESIUM LEVEL 1.7 MG/DL (1.8-2.4); POTASSIUM SERUM 4.2 MMOL/L (3.5-5.1); SODIUM LEVEL 134 MMOL/L (136-145)
[2022-07-26 07:52] VITALS: BP 166/80; TEMP 97.6; O2SAT 95
[2022-07-26 08:21] VITALS: BP 166/80
[2022-07-26] MEDS: AUGMENTIN 875 MG TAB PO SCH (08:21)
[2022-07-26] MEDS ORDERED: AMLO1TAB24 PO (08:26)
[2022-07-26] MEDS ORDERED: PRED50TA PO (08:26)
[2022-07-26] MEDS ORDERED: ALBU6.7H6 INH (08:26)
[2022-07-26] MEDS ORDERED: SYMB16INH INH (08:26)
[2022-07-26] MEDS ORDERED: AZIT500T5 PO (08:26)
[2022-07-26] MEDS ORDERED: METO1TAB32 PO (08:26)
[2022-07-26] MEDS ORDERED: PRED20TA PO (08:37)
[2022-07-26] MEDS ORDERED: ALBU8.5H INH (08:37)
[2022-07-26] MEDS: MAG SULF 1GM/100ML (MAG RUN) 1 GM in IV 1 EA IV SCH (08:38)
[2022-07-26] MEDS ORDERED: MIRA3350 PO (08:51)
[2022-07-26] MEDS ORDERED: SENN-85 PO (08:51)
[2022-07-26] MEDS ORDERED: amLODIPine 5 MG TAB PO SCH (09:00)
[2022-07-26] MEDS ORDERED: ATORVASTATIN 20 MG TAB PO SCH (09:00)
== END 2022-07-26 10:54 | disposition home health service (06) ==
LOC: M ED 16:14 → M ED INP 16:15 → M PCU 22:01
PROVIDERS: ADMIT Internal Medicine; ATTEND Internal Medicine
DX: R04.0 Epistaxis (principal); I16.0 Hypertensive urgency; I10 Essential (primary) hypertension; J44.9 Chronic obstructive pulmonary disease, unspecified; Z79.51 Long term (current) use of inhaled steroids; Z79.899 Other long term (current) drug therapy; Z79.52 Long term (current) use of systemic steroids; E78.5 Hyperlipidemia, unspecified; Z13.220 Encounter for screening for lipoid disorders; Z13.1 Encounter for screening for diabetes mellitus
CPT/HCPCS: 30901; 36415; 80048; 80053; 83735; 85025; 85027; 85610; 85730; 87631; 93041; 94640; 94760; 96374; 96375; 99285; G0378; J0360; J1885; J3475

== ENCOUNTER → 2022-12-17 | Outpatient (CLI) | payer MEDICARE, OTHER ==
[~2022-12-17] MED LIST changes: +ALBU6.7H6 INH; +ALBU8.5H INH; +AMLO1TAB24 PO; +ATOR80TA59 PO; +AZIT500T5 PO; +CENT1TAB PO; +METO1TAB32 PO; +MIRA3350 PO; +PRED20TA PO; +PRED50TA PO; +SENN-85 PO; +SYMB16INH INH
== END ==
LOC: M CARPUL 12:45
PROVIDERS: ATTEND Student in an Organized Health Care Education/Training Program
DX: J44.1 Chronic obstructive pulmonary disease with (acute) exacerbation (principal)

== ENCOUNTER 2023-05-10 16:34 | Inpatient (IN) | payer MEDICARE, OTHER ==
[~2023-05-10] VITALS: Ht 177.8 cm; Wt 67.3 kg
[~2023-05-10 16:34] MED LIST changes: -SALI0.6530 NARES; +SODI88SP NARES
[2023-05-10] MEDS ORDERED: BUDE10.32 INH (16:47)
[2023-05-10] MEDS: NS 1,000 ML IV SCH (16:55)
[2023-05-10 17:36] LABS: BASO % 0.1 % (0.0-1.0); EOS % 0.1 % (0.0-3.0); HEMATOCRIT 43.5 % (42.0-52.0); HEMOGLOBIN 14.7 g/dl (13.5-17.5); LYMPH # 0.7 10^3/uL (1.5-5.0); LYMPH % 5.6 % (24.0-44.0); MEAN CORPUSCULAR HEMOGLOBIN 31.3 pg (27.0-33.0); MEAN CORPUSCULAR HGB CONC 33.8 g/dl (32.0-36.5); MEAN CORPUSCULAR VOLUME 92.6 fl (80.0-96.0); MONO # 1.2 10^3/uL (0.0-0.8); MONO % 9.3 % (2.0-8.0); NEUTROPHILS # 10.7 10^3/uL (1.5-8.5); NEUTROPHILS % 84.4 % (36.0-66.0); PLATELET COUNT, AUTOMATED 329 10^3/uL (150-450); WHITE BLOOD COUNT 12.7 10^3/uL (4.0-10.0)
[2023-05-10] MEDS ORDERED: ISOVUE-370 76% 100ML VIAL As Ordered ONE (17:46)
[2023-05-10 18:06] LABS: BILIRUBIN,DIRECT 0.3 MG/DL (<0.4); BILIRUBIN,TOTAL 0.8 MG/DL (0.3-1.2); CALCIUM LEVEL 10.6 MG/DL (8.3-10.6); CREATININE FOR GFR 1.45 MG/DL (0.70-1.30); GLOMERULAR FILTRATION RATE 50.9 (>42); POTASSIUM SERUM 4.8 MMOL/L (3.5-5.1); TOTAL PROTEIN 7.6 G/DL (5.7-8.2)
[2023-05-10] MEDS ORDERED: PROA1AER2 INH (20:56)
[2023-05-10] MEDS ORDERED: AMLO1TAB24 PO (20:56)
[2023-05-10] MEDS ORDERED: HOME MED LIST COMPLETE! XX SCH (21:00)
[2023-05-10] MEDS: LR 1,000 ML IV SCH ×2 (21:02→22:23)
[2023-05-10] MEDS: PIPERACILLIN/TAZOBACTAM SOD 4.5 GM in D5W MINI-BAG PLUS 50 ML IV ONE (21:02)
[2023-05-10] MEDS ORDERED: HYDROMORPHONE HCL 0.5 MG/ 0.5 ML SYRINGE IV PRN (21:10)
[2023-05-10] MEDS ORDERED: ALBUTEROL SULFATE 2.5MG/0.5ML INH NEB SOLN NEB PRN (21:10)
[2023-05-10] MEDS ORDERED: ONDANSETRON 4MG 2ML VIAL IV PRN (21:10)
[2023-05-10] MEDS: IPRATROPIUM 0.5MG/ALBUTEROL 2.5MG INH SOL UD 3ML (DUONEB) NEB ONE (21:24)
[2023-05-10] MEDS: SYMBICORT 160/4.5MCG INHALER 6GM INH SCH (21:28)
[2023-05-11] VITALS (7 sets, daily range): BP systolic 150–187; BP diastolic 72–94; TEMP 98.5–99.3; O2SAT 90–94
[2023-05-11] MEDS: PIPERACILLIN/TAZOBACTAM SOD 3.375 GM in D5W MINI-BAG PLUS 50 ML IV SCH (03:43)
[2023-05-11] MEDS: hydrALAZINE 20MG/ML 1ML VIAL IV PRN (04:01)
[2023-05-11] MEDS: HEPARIN SOD (PORCINE) 5000UNITS/ML 1ML VIAL/SYRINGE SC SCH (05:10)
[2023-05-11 06:13] LABS: CREATININE FOR GFR 1.26 MG/DL (0.70-1.30); GLOMERULAR FILTRATION RATE 59.9 (>42)
[2023-05-11] MEDS: IPRATROPIUM 0.5MG/ALBUTEROL 2.5MG INH SOL UD 3ML (DUONEB) NEB SCH (07:35)
[2023-05-11 08:00] LABS: BASO % 0.3 % (0.0-1.0); EOS % 0.2 % (0.0-3.0); HEMATOCRIT 41.9 % (42.0-52.0); HEMOGLOBIN 14.3 g/dl (13.5-17.5); LYMPH # 0.7 10^3/uL (1.5-5.0); LYMPH % 4.8 % (24.0-44.0); MEAN CORPUSCULAR HEMOGLOBIN 31.6 pg (27.0-33.0); MEAN CORPUSCULAR HGB CONC 34.1 g/dl (32.0-36.5); MEAN CORPUSCULAR VOLUME 92.5 fl (80.0-96.0); MONO # 1.6 10^3/uL (0.0-0.8); MONO % 11.2 % (2.0-8.0); PLATELET COUNT, AUTOMATED 293 10^3/uL (150-450); RED BLOOD COUNT 4.53 10^6/uL (4.30-6.10); WHITE BLOOD COUNT 14.5 10^3/uL (4.0-10.0)
[2023-05-11 11:05] LABS: C REACTIVE PROTEIN QUANTITATIV 1.6 MG/DL (<1.0)
[2023-05-11 11:18] LABS: PROCALCITONIN 0.06 ng/ml
[2023-05-11] MEDS: predniSONE 20 MG TAB PO SCH (11:39)
[2023-05-12] VITALS (10 sets, daily range): BP systolic 92–147; BP diastolic 57–91; TEMP 97.4–99; O2SAT 92–94
[2023-05-12] MEDS: METOPROLOL 5 MG/5 ML VIAL IV SCH (04:11)
[2023-05-12] MEDS: ACETAMINOPHEN *IV* 1,000 MG in IV 1 EA IV ONE (04:31)
[2023-05-12] MEDS: dilTIAZem 25MG/5ML VIAL IV STA ×2 (05:12→09:55)
[2023-05-12 05:57] LABS: BASO # 0.1 10^3/uL (0.0-0.2); BASO % 0.4 % (0.0-1.0); EOS # 0.1 10^3/uL (0.0-0.5); EOS % 0.5 % (0.0-3.0); HEMATOCRIT 41.2 % (42.0-52.0); HEMOGLOBIN 14.1 g/dl (13.5-17.5); LYMPH # 0.9 10^3/uL (1.5-5.0); LYMPH % 6.4 % (24.0-44.0); MEAN CORPUSCULAR HEMOGLOBIN 31.5 pg (27.0-33.0); MEAN CORPUSCULAR HGB CONC 34.2 g/dl (32.0-36.5); MEAN CORPUSCULAR VOLUME 92.2 fl (80.0-96.0); MONO # 1.5 10^3/uL (0.0-0.8); MONO % 11.3 % (2.0-8.0); NEUTROPHILS % 80.8 % (36.0-66.0); PLATELET COUNT, AUTOMATED 294 10^3/uL (150-450); RED BLOOD COUNT 4.47 10^6/uL (4.30-6.10); WHITE BLOOD COUNT 13.6 10^3/uL (4.0-10.0)
[2023-05-12 06:27] LABS: BLOOD UREA NITROGEN 24 MG/DL (9-23); CALCIUM LEVEL 9.2 MG/DL (8.3-10.6); CARBON DIOXIDE LEVEL 32 MMOL/L (20-31); CHLORIDE LEVEL 99 MMOL/L (98-107); CREATININE FOR GFR 1.21 MG/DL (0.70-1.30); GLOMERULAR FILTRATION RATE > 60.0 (>42); GLUCOSE, FASTING 101 MG/DL (74-106); POTASSIUM SERUM 3.4 MMOL/L (3.5-5.1); SODIUM LEVEL 139 MMOL/L (136-145)
[2023-05-12] MEDS: KCL 10MEQ/100ML SWI (KRUN) 10 MEQ in IV 1 EA IV ONE (06:58)
[2023-05-12] MEDS: PANTOPRAZOLE 40MG VIAL IV SCH (06:58)
[2023-05-12] MEDS ORDERED: NS 500 ML IV STA (06:59)
[2023-05-12 07:14] LABS: HEMATOCRIT 42.6 % (42.0-52.0); HEMOGLOBIN 14.5 g/dl (13.5-17.5)
[2023-05-12] MEDS ORDERED: diltiaZEM 125 MG in NS 100 ML IV SCH ×3 (09:30→11:00)
[2023-05-12] MEDS: diltiaZEM 125 MG in NS 100 ML IV SCH (10:58)
[2023-05-12] MEDS ORDERED: HEPARIN SOD (PORCINE) 5000UNITS/ML 1ML VIAL/SYRINGE SQ SCH (11:50)
[2023-05-12] MEDS: NS 1,000 ML IV SCH ×2 (13:08→16:06)
[2023-05-12] MEDS ORDERED: KCL 40MEQ in NS 1000ML 1,000 ML IV SCH (13:08)
[2023-05-12] MEDS ORDERED: HEPARIN SOD (PORCINE) 5000UNITS/ML 1ML VIAL/SYRINGE IV PRN (13:45)
[2023-05-12] MEDS: HEPARIN DRIP 25,000 UNITS in IV 1 EA IV SCH (14:37)
[2023-05-12 14:53] LABS: BLOOD UREA NITROGEN 20 MG/DL (9-23); CARBON DIOXIDE LEVEL 31 MMOL/L (20-31); CHLORIDE LEVEL 101 MMOL/L (98-107); CREATININE FOR GFR 1.24 MG/DL (0.70-1.30); GLOMERULAR FILTRATION RATE > 60.0 (>42); GLUCOSE, FASTING 102 MG/DL (74-106); SODIUM LEVEL 138 MMOL/L (136-145)
[2023-05-12] MEDS: AMIODARONE HCL 150 MG in IV 1 EA IV ONE (16:04)
[2023-05-12] MEDS: MAG SULF 1GM/100ML (MAG RUN) 1 GM in IV 1 EA IV ONE (16:05)
[2023-05-12 21:28] LABS: INR 1.15; PROTHROMBIN TIME 14.3 SECONDS (12.5-14.5)
[2023-05-12 21:39] LABS: PARTIAL THROMBOPLASTIN TIME 153.3 SECONDS (24.8-34.2)
[2023-05-13 03:52] VITALS: BP 172/93; TEMP 98.3; O2SAT 93
[2023-05-13 05:45] VITALS: BP 155/91
[2023-05-13 06:43] LABS: BASO # 0.1 10^3/uL (0.0-0.2); BASO % 0.6 % (0.0-1.0); EOS # 0.2 10^3/uL (0.0-0.5); EOS % 1.5 % (0.0-3.0); HEMATOCRIT 37.4 % (42.0-52.0); HEMOGLOBIN 12.6 g/dl (13.5-17.5); LYMPH # 0.9 10^3/uL (1.5-5.0); LYMPH % 8.4 % (24.0-44.0); MEAN CORPUSCULAR HEMOGLOBIN 31.7 pg (27.0-33.0); MEAN CORPUSCULAR HGB CONC 33.7 g/dl (32.0-36.5); MEAN CORPUSCULAR VOLUME 94.2 fl (80.0-96.0); MONO # 1.2 10^3/uL (0.0-0.8); MONO % 10.7 % (2.0-8.0); NEUTROPHILS # 8.5 10^3/uL (1.5-8.5); NEUTROPHILS % 78.3 % (36.0-66.0); PLATELET COUNT, AUTOMATED 239 10^3/uL (150-450); RED BLOOD COUNT 3.97 10^6/uL (4.30-6.10); WHITE BLOOD COUNT 10.8 10^3/uL (4.0-10.0)
[2023-05-13 07:02] LABS: INR 1.13; PROTHROMBIN TIME 14.1 SECONDS (12.5-14.5)
[2023-05-13 07:58] VITALS: BP 163/90; TEMP 98.2; O2SAT 92
[2023-05-13 08:30] LABS: BLOOD UREA NITROGEN 23 MG/DL (9-23); CALCIUM LEVEL 8.1 MG/DL (8.3-10.6); CARBON DIOXIDE LEVEL 26 MMOL/L (20-31); CHLORIDE LEVEL 104 MMOL/L (98-107); CREATININE FOR GFR 1.13 MG/DL (0.70-1.30); GLOMERULAR FILTRATION RATE > 60.0 (>42); GLUCOSE, FASTING 89 MG/DL (74-106); POTASSIUM SERUM 3.3 MMOL/L (3.5-5.1); SODIUM LEVEL 139 MMOL/L (136-145)
[2023-05-13] MEDS: AMIODARONE HCL 150 MG in IV 1 EA IV ONE (11:47)
[2023-05-13 12:00] VITALS: BP 159/82; TEMP 97.4; O2SAT 94
[2023-05-13 16:19] LABS: CALCIUM LEVEL 8.8 MG/DL (8.3-10.6)
== END 2023-05-13 14:07 | disposition left against medical advice (07) | DRG 872 ==
LOC: M ED 16:34 → M ED INP 23:31 → ENRESERV 23:48 → M PCU 05-11 00:16
PROVIDERS: ADMIT Internal Medicine; ATTEND Internal Medicine
DX: A41.9 Sepsis, unspecified organism (principal); K56.609 Unspecified intestinal obstruction, unspecified as to partial versus complete obstruction; K57.92 Diverticulitis of intestine, part unspecified, without perforation or abscess without bleeding; E87.20 Acidosis, unspecified; R18.8 Other ascites; N17.9 Acute kidney failure, unspecified; I10 Essential (primary) hypertension; I48.91 Unspecified atrial fibrillation; F17.210 Nicotine dependence, cigarettes, uncomplicated; E78.00 Pure hypercholesterolemia, unspecified; J43.9 Emphysema, unspecified; E86.0 Dehydration; K80.20 Calculus of gallbladder without cholecystitis without obstruction; Z85.51 Personal history of malignant neoplasm of bladder; Z79.899 Other long term (current) drug therapy

== ENCOUNTER → 2023-12-14 | Outpatient (CLI) | payer MEDICARE, OTHER ==
[~2023-12-14] MED LIST changes: +BUDE10.32 INH; +PROA1AER2 INH
== END ==
LOC: M RAD 10:44
PROVIDERS: ATTEND Student in an Organized Health Care Education/Training Program
DX: Z12.2 Encounter for screening for malignant neoplasm of respiratory organs (principal); F17.210 Nicotine dependence, cigarettes, uncomplicated

== ENCOUNTER 2024-01-01 14:43 | Emergency (ER) | payer MEDICARE, OTHER ==
[~2024-01-01] VITALS: Ht 177.8 cm; Wt 58.4 kg
[2024-01-01 18:51] LABS: BASO % 0.3 % (0.0-1.0); EOS % 0.1 % (0.0-3.0); HEMATOCRIT 28.6 % (42.0-52.0); HEMOGLOBIN 9.7 g/dl (13.5-17.5); LYMPH # 0.6 10^3/uL (1.5-5.0); LYMPH % 5.3 % (24.0-44.0); MEAN CORPUSCULAR HEMOGLOBIN 31.8 pg (27.0-33.0); MEAN CORPUSCULAR HGB CONC 33.9 g/dl (32.0-36.5); MEAN CORPUSCULAR VOLUME 93.8 fl (80.0-96.0); MONO % 8.4 % (2.0-8.0); NEUTROPHILS # 10.3 10^3/uL (1.5-8.5); NEUTROPHILS % 85.5 % (36.0-66.0); PLATELET COUNT, AUTOMATED 240 10^3/uL (150-450); RED BLOOD COUNT 3.05 10^6/uL (4.30-6.10); WHITE BLOOD COUNT 12.1 10^3/uL (4.0-10.0)
[2024-01-01 19:08] LABS: INR 0.98; PARTIAL THROMBOPLASTIN TIME 30.8 SECONDS (24.8-34.2); PROTHROMBIN TIME 13.3 SECONDS (12.5-14.5)
[2024-01-01 20:02] VITALS: BP 145/67; TEMP 98.7; O2SAT 96
== END 2024-01-01 20:02 | disposition home or self-care (01) ==
LOC: M ED 14:43
DX: R04.0 Epistaxis (principal); D64.9 Anemia, unspecified; J44.9 Chronic obstructive pulmonary disease, unspecified; F17.200 Nicotine dependence, unspecified, uncomplicated; Z79.52 Long term (current) use of systemic steroids; Z79.02 Long term (current) use of antithrombotics/antiplatelets; Z79.899 Other long term (current) drug therapy

== ENCOUNTER 2024-01-18 00:53 | Emergency (ER) | payer MEDICARE, OTHER ==
[~2024-01-18] VITALS: Ht 177.8 cm; Wt 58.2 kg
[2024-01-18 02:31] LABS: BASO # 0.1 10^3/uL (0.0-0.2); BASO % 0.4 % (0.0-1.0); EOS # 0.2 10^3/uL (0.0-0.5); EOS % 1.6 % (0.0-3.0); HEMATOCRIT 28.6 % (42.0-52.0); HEMOGLOBIN 9.6 g/dl (13.5-17.5); LYMPH # 1.2 10^3/uL (1.5-5.0); LYMPH % 9.7 % (24.0-44.0); MEAN CORPUSCULAR HEMOGLOBIN 32.7 pg (27.0-33.0); MEAN CORPUSCULAR HGB CONC 33.6 g/dl (32.0-36.5); MEAN CORPUSCULAR VOLUME 97.3 fl (80.0-96.0); MONO # 1.3 10^3/uL (0.0-0.8); MONO % 10.7 % (2.0-8.0); NEUTROPHILS # 9.3 10^3/uL (1.5-8.5); NEUTROPHILS % 77.2 % (36.0-66.0); PLATELET COUNT, AUTOMATED 366 10^3/uL (150-450); RED BLOOD COUNT 2.94 10^6/uL (4.30-6.10); WHITE BLOOD COUNT 12.1 10^3/uL (4.0-10.0)
[2024-01-18 02:54] LABS: CK-MB VALUE MASS 1.4 NG/ML (<3.6)
[2024-01-18 02:56] LABS: BLOOD UREA NITROGEN 25 MG/DL (9-23); CALCIUM LEVEL 9.2 MG/DL (8.3-10.6); CARBON DIOXIDE LEVEL 28 MMOL/L (20-31); CHLORIDE LEVEL 102 MMOL/L (98-107); CPK CREATINE PHOSPHOKINASE 133 U/L (46-171); CREATININE FOR GFR 1.12 MG/DL (0.70-1.30); GLOMERULAR FILTRATION RATE > 60.0 (>42); GLUCOSE, FASTING 113 MG/DL (74-106); MB/CK RELATIVE INDEX 1.05 (< OR =4); POTASSIUM SERUM 3.9 MMOL/L (3.5-5.1); SODIUM LEVEL 138 MMOL/L (136-145)
[2024-01-18 03:54] VITALS: BP 163/79; O2SAT 99
[2024-01-18 04:00] LABS: CK-MB VALUE MASS 1.3 NG/ML (<3.6)
[2024-01-18 04:02] LABS: MB/CK RELATIVE INDEX 1.1 (< OR =4)
[2024-01-18] MEDS ORDERED: LIDO5DIS41 TD (04:40)
[2024-01-18] MEDS ORDERED: IBUP-1022 PO (04:40)
[2024-01-18] MEDS: KETOROLAC 30 MG/ML 1ML VIAL IV ONE (04:43)
[2024-01-18 04:48] LABS: URIC ACID 5.7 MG/DL (3.7-9.2)
[2024-01-18] MEDS: LIDOCAINE 5% (LIDODERM) PATCH TD ONE (05:00)
[2024-01-18 05:05] VITALS: TEMP 98.4
== END 2024-01-18 05:12 | disposition home or self-care (01) ==
LOC: M ED 00:53
DX: R07.9 Chest pain, unspecified (principal); M25.512 Pain in left shoulder; M25.532 Pain in left wrist; I45.81 Long QT syndrome; I49.1 Atrial premature depolarization; E78.5 Hyperlipidemia, unspecified; I10 Essential (primary) hypertension; J44.9 Chronic obstructive pulmonary disease, unspecified; F17.200 Nicotine dependence, unspecified, uncomplicated; Z79.52 Long term (current) use of systemic steroids; Z79.02 Long term (current) use of antithrombotics/antiplatelets; Z79.899 Other long term (current) drug therapy
CPT/HCPCS: 71045; 80048; 82550; 82553; 83880; 84484; 84550; 85025; 93005; 93041; 94760; 96374; 99284; J1885

== ENCOUNTER 2024-01-22 13:32 | Day surgery (SDC) | payer MEDICARE, OTHER ==
[~2024-01-22] VITALS: Ht 177.8 cm; Wt 59.8 kg
[2024-01-22] MEDS ORDERED: LIDOCAINE 2% 100MG/5ML SDV (FOR ANES.) As Ordered ONE (15:45)
[2024-01-22] MEDS ORDERED: SUGAMMADEX SODIUM 500 MG/5 ML VIAL (BRIDION) As Ordered ONE (15:45)
[2024-01-22] MEDS ORDERED: ROCURONIUM BROMIDE 50MG/5ML VIAL As Ordered ONE (15:45)
[2024-01-22] MEDS ORDERED: propofoL 200 MG/20 ML VIAL As Ordered ONE (15:45)
[2024-01-22] MEDS ORDERED: ONDANSETRON 4MG 2ML VIAL As Ordered ONE (15:45)
[2024-01-22] MEDS ORDERED: fentaNYL 100 MCG/2 ML INJECTION As Ordered ONE (15:50)
[2024-01-22] MEDS ORDERED: ACETAMINOPHEN 1000MG/100ML IV BAG As Ordered ONE (16:44)
[2024-01-22] MEDS: METHYLENE BLUE 0.5% (5MG/ML) 10 ML AMP (PROVAYBLUE) As Ordered ONE (16:56)
[2024-01-22] MEDS: EPINEPHrine 1MG/ML INJ 30ML MD-VIAL As Ordered ONE (16:56)
[2024-01-22] MEDS ORDERED: PHENYLephrine 500MCG 5ML (100MCG/ML) SYRINGE As Ordered ONE (17:05)
[2024-01-22] MEDS: BACITRACIN OINTMENT 30GM TUBE As Ordered ONE (17:42)
[2024-01-22] MEDS: PHENYLEPHRINE 0.5% NASAL SPRAY 15 ML As Ordered ONE (17:44)
[2024-01-22] MEDS: LIDOCAINE W/EPINEPHRINE 1% 20ML VIAL As Ordered ONE (17:44)
[2024-01-22] MEDS ORDERED: fentaNYL 100 MCG/2 ML INJECTION IV PRN (18:30)
[2024-01-22] MEDS ORDERED: MEPERIDINE 25 MG/ML 1ML VIAL IV PRN (18:30)
[2024-01-22 18:44] VITALS: BP 180/89
[2024-01-22] MEDS: hydrALAZINE 20MG/ML 1ML VIAL IV PRN (18:44)
[2024-01-22] MEDS: oxyCODONE 5MG TAB PO PRN (18:44)
[2024-01-22] MEDS: ONDANSETRON 4MG 2ML VIAL IV PRN (18:45)
[2024-01-22] MEDS: HYDROMORPHONE HCL 0.5 MG/ 0.5 ML SYRINGE IV PRN (18:46)
[2024-01-22 19:15] VITALS: BP 148/67; TEMP 98.9; O2SAT 93
== END 2024-01-22 19:40 | disposition home or self-care (01) ==
LOC: M SDC 13:32
PROVIDERS: ATTEND Otolaryngology
DX: R04.0 Epistaxis (principal); I10 Essential (primary) hypertension; J44.9 Chronic obstructive pulmonary disease, unspecified; F17.210 Nicotine dependence, cigarettes, uncomplicated; Z79.899 Other long term (current) drug therapy; Z85.51 Personal history of malignant neoplasm of bladder
CPT/HCPCS: 31231; 31238; 70486; G0463; J0131; J0171; J0360; J1100; J1171; J2371; J2405; J3010; Q9968

== ENCOUNTER → 2024-01-22 | Outpatient (CLI) | payer MEDICARE, OTHER ==
[~2024-01-22] MED LIST changes: +IBUP-1022 PO; +LIDO5DIS41 TD
== END ==
LOC: M RAD 13:13
PROVIDERS: ATTEND Otolaryngology
DX: J34.2 Deviated nasal septum (principal); R04.0 Epistaxis

== ENCOUNTER → 2024-05-29 | Outpatient (REF) | payer MEDICARE, OTHER | LOC: M SFHCPLAZ 15:36 | PROVIDERS: ATTEND Family Medicine | DX: Z00.00 Encounter for general adult medical examination without abnormal findings (principal) ==